=== PATIENT | female | born 1945 | race African-American/Black ===

== ENCOUNTER 2017-01-22 13:24 | Emergency (ER) | payer OTHER ==
[~2017-01-22] VITALS: Ht 157.5 cm; Wt 81.5 kg
[~2017-01-22 13:24] MED LIST: ATORVASTATIN CA80 MG PO; BAYER CHEWABLE81 MG PO; DIOVAN160 MG PO; ERGOCALCIF50000 UNIT PO; LANTUS 3 M100 UNITS1 SC; LEVOTHYROXINE150 MCG PO; METFORMIN HCL1000 MG PO; METHOCARBAMOL500 MG PO; MONTELUKAST SOD10 MG PO; NAPROXEN500 MG PO; NORVASC5 MG PO; PERCOCET 5/31 TABLET PO; PREDNISONE20 MG PO
[2017-01-22 16:57] VITALS: BP 116/62
== END 2017-01-22 17:26 | disposition home or self-care (01) ==
LOC: EME 13:24
PROVIDERS: Emergency Medicine
DX: J02.9 Acute pharyngitis, unspecified (principal); R05 Cough; R51 Headache; M79.1 Myalgia; J45.909 Unspecified asthma, uncomplicated; I10 Essential (primary) hypertension; E78.5 Hyperlipidemia, unspecified; E03.9 Hypothyroidism, unspecified; E11.9 Type 2 diabetes mellitus without complications; Z79.4 Long term (current) use of insulin; Z79.82 Long term (current) use of aspirin; Z87.891 Personal history of nicotine dependence
CPT/HCPCS: 71020; 87502